=== PATIENT | male | born 1935 | race Caucasian/White ===

== ENCOUNTER 2019-08-11 14:20 | Observation (INO) ==
[2019-08-11 15:09] LABS: Basophils # 0.1 K/mcL (0.0-0.2); Basophils % 0.6 %; Eosinophils % 0.3 %; Hemoglobin 14.5 g/dL (12.9-16.9); Immature Granulocytes % 0.5 % (0-4); Lymphocytes # 1.2 K/mcL (0.6-4.6); Lymphocytes % 11.1 %; Mean Corpuscular HGB Conc 34.5 g/dL (31.6-35.5); Mean Corpuscular Hemoglobin 30.1 pg (28.0-33.3); Mean Corpuscular Volume 87.3 fL (83.0-100.0); Mean Platelet Volume 10.5 fL (9.4-12.4); Monocytes # 0.7 K/mcL (0.0-1.3); Monocytes % 6.7 %; Neutrophils # 8.4 K/mcL (1.6-8.9); Platelet Count 151 K/mcL (140-400); Red Blood Count 4.81 M/mcL (4.19-5.50); Red Cell Distribution Width 13.7 % (11.5-14.5); Segmented Neutrophils % 80.8 %; White Blood Count 10.4 K/mcL (4.3-11.1)
[2019-08-11 15:16] LABS: Prothrombin Time 22.6 Seconds (9.4-12.1)
[2019-08-11] MEDS ORDERED: Furosemide 40 MG/4 ML VIAL IVP STA (15:23)
[2019-08-11] MEDS ORDERED: Verapamil 5 MG/2 ML VIAL IVP STA (15:24)
[2019-08-11 15:30] LABS: Magnesium 2.5 mg/dL (1.6-2.6); Phosphorous 4.3 mg/dL (2.7-4.5); Potassium 4.9 mEq/L (3.5-5.1)
[2019-08-11 15:42] LABS: Troponin I 0.06 ng/mL (< 0.04)
[2019-08-11 16:16] LABS: Bilirubin,Urine Negative (Negative); Blood,Urine Small (Negative); Clarity,Urine Clear (Clear); Color,Urine Yellow (Yellow); Glucose,Urine (UA) Normal (Normal); Ketones,Urine Negative (Negative); Leukocyte Esterase,Urine Negative (Negative); Nitrite,Urine Negative (Negative); PH,Urine 5.5 pH Units (5.0-8.0); Protein,Urine 30 mg/dL (Neg-Trace); Urobilinogen,Urine Normal (Normal)
[2019-08-11 16:19] LABS: Bacteria,Urine None Seen per hpf (None-Few); Hyaline Casts,Urine Few per lpf (None-Few); Squamous Epithelial Cell,Urine Moderate per lpf (None-Few); WBC,Urine 0-3 per hpf (0-3)
[2019-08-11] MEDS ORDERED: Ondansetron 4 MG/2 ML VIAL IVP PRN (16:43)
[2019-08-11] MEDS ORDERED: *HR* HYDROcodone/Acet 5/325 mg TABLET PO PRN (16:43)
[2019-08-11] MEDS ORDERED: Acetaminophen 325 MG TABLET PO PRN (16:43)
[2019-08-11] MEDS ORDERED: Naloxone 0.4 MG/ML INJ IVP PRN (16:43)
[2019-08-11] MEDS ORDERED: Azithromycin 500 MG in 0.9 % Sodium Chloride 250 ML IVPB SCH (17:00)
[2019-08-11 18:25] VITALS: BP 105/76
[2019-08-11] MEDS ORDERED: *HR* Metoprolol 5 MG/5 ML VIAL IVP PRN (18:43)
[2019-08-11] MEDS ORDERED: EPINEPHrine 1 MG in D5% in Water 250 ML IVC SCH (20:15)
[2019-08-11] MEDS ORDERED: D5% in Water 250 ML ONE (20:30)
[2019-08-11] MEDS ORDERED: *HR* Norepinephrine 4 MG/4 ML VIAL IVC ONE ×2 (20:30→20:31)
[2019-08-11] MEDS ORDERED: *HR* Atropine Sulfate 1 MG/10 ML SYRINGE IV ONE (20:31)
[2019-08-11] MEDS ORDERED: D5% in Water 250 ML IV BAG IV ONE (20:31)
[2019-08-11] MEDS ORDERED: *HR* Amiodarone 150 MG/3 ML VIAL IVPB ONE (20:31)
[2019-08-11] MEDS ORDERED: *HR* Magnesium Sulfate 2 GM/50 ML PIGGYBACK IVPB ONE (20:31)
[2019-08-11] MEDS ORDERED: *HR* EPINEPHrine 1 MG/10 ML SYRINGE IVP ONE ×2 (20:31)
[2019-08-11 20:36] LABS: ABG Base Excess -13 mEq/L (-2 to 3); ABG HCO3 21 mEq/L (21-27); ABG Oxygen Saturation 39 % (95-98); ABG PCO2 90 mmHg (35-45); ABG PH 6.97 pH Units (7.32-7.45); ABG PO2 36 mmHg (85-104); ABG TCO2 24 mEq/L (20-26)
[2019-08-11] MEDS ORDERED: *HR* Rivaroxaban 10 MG TABLET PO SCH (21:00)
[2019-08-11] MEDS ORDERED: Furosemide 40 MG/4 ML VIAL IVP ONE (21:00)
[2019-08-11] MEDS ORDERED: Furosemide 40 MG/4 ML VIAL IVP SCH (21:00)
[2019-08-12] MEDS ORDERED: cefTRIAXone 1,000 MG in Water for inj. (sterile) 10 ML IVP SCH (16:46)
== END 2019-08-11 20:32 | disposition expired ==
LOC: 2ANU 14:20 → EMEROOARM 14:20 → 2ANU 17:46 → ICNU 20:17
PROVIDERS: ADMIT Student in an Organized Health Care Education/Training Program; ATTEND Student in an Organized Health Care Education/Training Program